=== PATIENT | female | born 1980 | race Asian ===

== ENCOUNTER 2017-10-04 13:08 | Outpatient (CLI) | END 2017-10-04 14:50 | disposition home or self-care (01) ==

== ENCOUNTER 2017-10-25 10:54 | Inpatient (IN) | END 2017-10-29 15:34 | disposition home or self-care (01) | DRG 766 ==

== ENCOUNTER 2017-10-30 16:09 | Emergency (ER) | END 2017-10-30 20:07 | disposition home or self-care (01) ==